=== PATIENT | male | born 1985 | race Hispanic/Latino ===

== ENCOUNTER 2016-08-13 19:09 | Emergency (ER) | payer MEDICAID ==
[2016-08-13 19:21] VITALS: RESP 18; TEMP 98.4
--- NOTE | 2016-08-13 19:57 | C.PDOC ---
History Of Present Illness 30 year old patient presents to the ED complaining of right foot pain, swelling and bruising for 2 days. Patient states his symptoms started after he "banged pinky toe into the wall." Patient reports he was ambulatory after the injury. Today, he has mild discomfort with weight bearing. Patient denies obvious deformity, weakness, sensory or vascular deficits to Right foot, denies or skin changes. Time Seen by Provider: 08/13/16 19:47 Chief Complaint (Nursing): Lower Extremity Problem/Injury History Per: Patient History/Exam Limitations: no limitations Onset/Duration Of Symptoms: Days (2) Current Symptoms Are (Timing): Still Present Severity: Mild Pain Scale Rating Of: 3 Recent travel outside of the [place]: No - Ankle/Foot Description Of Injury: Struck Against Object Currently Unable To: Bear Weight Past Medical History Reviewed: Historical Data, Nursing Documentation, Vital Signs Vital Signs: Last Vital Signs Temp 98.4 F 08/13/16 19:18 Pulse 75 08/13/16 20:30 Resp 18 08/13/16 20:30 BP 126/75 08/13/16 20:30 Pulse Ox 98 08/13/16 20:30 Family History: States: Unknown Family Hx - Social History Hx Alcohol Use: Yes Hx Substance Use: No - Immunization History Hx Tetanus Toxoid Vaccination: Yes Hx Influenza Vaccination: No Hx Pneumococcal Vaccination: No Review Of Systems Except As Marked, All Systems Reviewed And Found Negative. Constitutional: Negative for: Fever Musculoskeletal: Positive for: Foot Pain (right) Skin: Negative for: Other (skin changes) Neurological: Negative for: Weakness, Other (obvious deformity) Physical Exam - Physical Exam Appears: Well, Non-toxic, No Acute Distress Skin: Warm, Dry, Ecchymosis (trace over 4th and 5th toes extend slight to the dorsal aspect of the right foot) Extremity: Normal ROM (Right foot, no neurovascular deficits.), Tenderness ( difuse over right 5th toe), No Calf Tenderness, Capillary Refill (<2 seconds to Right foot), No Deformity, No Swelling Neurological/Psych: Oriented x3, Normal Motor, Normal Sensation, Normal Reflexes ED Course And Treatment O2 Sat by Pulse Oximetry: 99 (room air) Pulse Ox Interpretation: Normal - Other Rad Right foot X-Ray: Interpreted by Me Interpretation: (+)?5th proximal phalanx fx Progress Note: On re-eavluation, pt is afebrile, hemodynamicaly stable. NOn- toxic. Ambulatory in ED. Right foot: exam c/w 5th toe/foot contusion. No palpable deformity, no neurovascular deficits. xray review and no acute fx or dislocation noted. Sebastian tape/ cast shoe applied. Pt advised and ref. to F/u with [facility] in 2-3 days for re-eval. return if any new changes. On discharge, pt request " stronger medication. Tramadol and OTC medicatin does not help for pain usually". Pt advised on pain control and ref. to F/u with [facility] [employer] [facility] or PM for further eval. and pain managment. Disposition Counseled Patient/Family Regarding: Studies Performed, Diagnosis, Need For Followup, Rx Given - Disposition Referrals: Podiatry Clinic [Outside] Disposition: HOME/ ROUTINE Disposition Time: 20:16 Condition: STABLE Additional Instructions: ICE TO INJURED FOOT KEEP FOOT UP ELEVATED FOR 2-3 DAYS LIMITED AMBULATION SEBASTIAN TAPE FOR 1 WEEK FOLLOW UP WITH PHOTOGRAPHER APPRENTICE [facility]OGR[employer] IN 2-3 DAYS FOR RE-EVALUATION AND FURTHER TREATMENT. Prescriptions: oxyCODONE/Acetaminophen [Percocet 5/325 mg Tab] 1 tab PO BID PRN #3 tab PRN Reason: Pain traMADol [Ultram] 50 mg PO TID #7 tab Instructions: Toe Fracture (ED) - Clinical Impression Clinical Impression: Toe fracture - Scribe Statement The provider has reviewed the documentation as recorded by the Scribe Michelle Cagle All medical record entries made by the Scribe were at my direction and personally dictated by me. I have reviewed the chart and agree that the record accurately reflects my personal performance of the history, physical exam, medical decision making, and the department course for this patient. I have also personally directed, reviewed, and agree with the discharge instructions and disposition.
[2016-08-13 20:30] VITALS: BP 126/75; PULSE 75
[2016-08-13 20:38] VITALS: O2SAT 99
--- NOTE | 2016-08-14 08:08 | RAD ---
PROCEDURE: Right Foot Radiographs. HISTORY: injury COMPARISON: None. FINDINGS: BONES: A probable nondisplaced medial 5th proximal phalangeal subtle fractures suspect. This is patient's area of the concern. Prominent nutrient foramina can sometimes simulate this. Patient's pain is slightly more lateral. No gross intra-articular extension seen. JOINTS: Normal. SOFT TISSUES: Mild soft tissue swelling here is noted. Injury was apparently August 11 OTHER FINDINGS: None. IMPRESSION: Probable: Nondisplaced subtle fracture 5th digit medial proximal phalanx.
== END 2016-08-13 20:32 | disposition home or self-care (01) ==
LOC: C.ER 19:09
DX: S92.524A Nondisplaced fracture of middle phalanx of right lesser toe(s), initial encounter for closed fracture (principal); W22.01XA Walked into wall, initial encounter; Y92.89 Other specified places as the place of occurrence of the external cause